=== PATIENT | female | born 1960 ===

== ENCOUNTER 2016-09-03 12:34 | Emergency (ER) | payer OTHER ==
[2016-09-03 13:05] VITALS: BP 130/86
--- NOTE | 2016-09-03 13:51 | Consultation ---
History of Present Illness - [facility] Consult date: 09/03/16 Consult reason: joint pain History of present illness: 55 y/o female with c/o left knee pain and swelling after a slip and fall injury today at work, c/o pain along medial and lateral joint lines...history of previous knee pain and swelling in past Medications and Allergies Allergies Allergy/AdvReac Type Severity Reaction Status Date / Time droperidol AdvReac Unknown Verified 09/03/16 13:05 Physical Examination - Physical exam Narrative exam: left knee- 1-2 plus effusion, tender at both joint lines, mild crepitus on passive ROM, no obvious ligament instability, questionable Maria Eugenia's xrays left knee - no fracture of dislocation seen, there's moderate degenerative changes all three compartments Assessment and Plan left knee pain after fall most likely sprain/contusion recommendations - would try knee brace hinged type along with mobic 15 mg x 15 days
[2016-09-03] MEDS ORDERED: TORADOL IM ONE (14:28)
--- NOTE | 2016-09-03 15:19 | XRay Report ---
FINAL REPORT EXAM: XR KNEE 3V LT HISTORY: pain in the left knee TECHNIQUE: AP, oblique, and lateral portable views of the left knee PRIORS: None. FINDINGS: No acute fracture or dislocation is seen. The soft tissues demonstrates a small suprapatellar joint effusion. The bony mineralization is normal. There is severe joint space narrowing of the patellofemoral joint. Mild narrowing of the medial and lateral joint compartments is also noted. Spurring off the tibial spines, medial and lateral joint spaces, and posterior patella is seen. IMPRESSION: No acute bony abnormality is of the left knee. Joint effusion. Tricompartmental osteoarthritis.
--- NOTE | 2016-09-03 19:54 | Emergency Department Report ---
Entered by ABBEY RAHMAN, acting as scribe for KEITH FITCH PA. ED Fall HPI - General Chief Complaint: Extremity Injury, Lower Stated Complaint: FELL/LT KNEE PAIN Source: patient Mode of arrival: Stretcher Limitations: No Limitations - History of Present Illness Initial Comments: 55 year old female with Hx of arthritis in left knee presents to the ED for evaluation of left knee pain and swelling secondary to fall earlier today. 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 She reports she tripped over power cord for exam light and fell, landing on the tile floor onto her left knee. She did not hit her head or incur any additional injuries. She describes her left knee pain as localized to her left knee and rates her discomfort as a 4/10 in severity. Treatments prior to arrival included ice.She denies any numbness or tingling. MD Complaint: fall -: This afternoon Fall From: standing Fall Witnessed: yes, by bystander Place Fall Occurred: work (in Labor & Delivery Department in [employer]) Loss of Consciousness: none Prolonged Down Time?: no Symptoms Prior to Fall: none Location - Extremities: Left: Knee (pain and swelling) Severity: moderate Severity scale (0 -10): 4 Context: tripped/slipped Associated Symptoms: denies: headache, neck pain, numbness, weakness, chest paint, shortness of breath, abdominal pain, unable to walk, lightheaded, confusion - Related Data Previous Rx's Medication Instructions Recorded Last Taken Type Meloxicam [Mobic] 15 mg PO QDAY PRN #15 tablet 09/03/16 Unknown Rx Allergies Allergy/AdvReac Type Severity Reaction Status Date / Time droperidol AdvReac Unknown Verified 09/03/16 13:05 ED Review of Systems Comment: All other systems reviewed and negative Constitutional: denies: chills, fever Respiratory: denies: cough, orthopnea, shortness of breath, SOB with exertion, SOB at rest, stridor Cardiovascular: denies: chest pain, palpitations, edema, syncope Gastrointestinal: denies: abdominal pain, nausea, vomiting, diarrhea Musculoskeletal: joint swelling (left knee), arthralgia (left knee). denies: back pain Neurological: denies: headache, weakness, numbness, paresthesias, abnormal gait , vertigo, other (LOC) ED Past Medical Hx - Past Medical History Previous Medical History?: Yes Hx Diabetes: Yes - Surgical History Past Surgical History?: Yes Additional Surgical History: R foot - Family History Family history: hypertension - Social History Smoking Status: Never Smoker Substance Use Type: None - Medications Home Medications: Home Medications Medication Instructions Recorded Confirmed Last Taken Type Meloxicam [Mobic] 15 mg PO QDAY PRN #15 tablet 09/03/16 Unknown Rx ED Physical Exam - General Limitations: No Limitations General appearance: alert, in no apparent distress - Head Head exam: Present: atraumatic, normocephalic - Eye Eye exam: Present: normal appearance, PERRL, EOMI Pupils: Present: normal accommodation - ENT ENT exam: Present: normal exam, normal orophraynx, mucous membranes moist, TM's normal bilaterally, normal external ear exam - Neck Neck exam: Present: normal inspection, full ROM. Absent: tenderness, meningismus, lymphadenopathy, thyromegaly - Respiratory Respiratory exam: Present: normal lung sounds bilaterally. Absent: respiratory distress, wheezes, rales, rhonchi - Cardiovascular Cardiovascular Exam: Present: regular rate, normal rhythm, normal heart sounds. Absent: systolic murmur, diastolic murmur, rubs, gallop - GI/Abdominal GI/Abdominal exam: Present: soft. Absent: distended, tenderness, guarding, rebound, rigid - Extremities Exam Extremities exam: Present: normal capillary refill (less than 2 seconds), other (2+ left popliteal pulse) - Expanded Lower Extremity Exam Left Hip exam: Present: normal inspection, full ROM, pelvic stability. Absent: tenderness, swelling, abrasion, deformity, crepidus, dislocation, erythema, external rotation, internal rotation, shortening Upper Leg exam: Present: normal inspection, full ROM. Absent: tenderness, swelling, abrasion, laceration, ecchymosis, deformity, crepidus, dislocation, erythema Knee exam: Present: full ROM (but pain with extension and flexion), tenderness ( at both joint lines), swelling (mild), crepidus (mild with passive ROM), effusion, pain w/ pronation/supination, full knee extension (but painful). Absent: abrasion, laceration, ecchymosis, deformity, dislocation, erythema, posterior draw sign, pain/laxity with valgus, pain/laxity with varus Lower Leg exam: Present: normal inspection, full ROM. Absent: tenderness, swelling, deformity, dislocation Ankle exam: Present: normal inspection, full ROM. Absent: tenderness, swelling , deformity, dislocation Foot/Toe exam: Present: normal inspection, full ROM. Absent: tenderness, swelling, abrasion, laceration, ecchymosis, deformity, crepidus, dislocation, erythema, amputation, puncture wound, foreign body, calcaneal tenderness, tenderness at base of 5th metatarsal, nail avulsion, subungual hematoma Neuro vascular tendon exam: Present: no vascular compromise. Absent: pulse deficit, abnormal cap refill, motor deficit, sensory deficit, tendon deficit, extremity cold to touch, pallor, abnormal 2-point discrimination, decreased fine /light touch, foot drop, peroneal nerve deficit, significant pain with passive ROM of distal joint Gait: Positive: observed and limited by pain - Back Exam Back exam: Present: normal inspection, full ROM. Absent: tenderness, CVA tenderness (R), CVA tenderness (L), muscle spasm, paraspinal tenderness, vertebral tenderness, rash noted - Neurological Exam Neurological exam: Present: alert, oriented X3, normal gait, reflexes normal - Psychiatric Psychiatric exam: Present: normal affect, normal mood - Skin Skin exam: Present: warm, dry, intact, normal color. Absent: rash, cyanosis ED Course Vital Signs 09/03/16 09/03/16 13:03 15:12 Temperature 97.9 F Pulse Rate 88 Respiratory 16 16 Rate Blood Pressure 130/86 O2 Sat by Pulse 97 Oximetry - Reevaluation(s) Reevaluation #1: 09/03/16 14:42 Pt received Toradol 60 mg IM and emergency room for right knee pain. - Orthopedic Splinting/Casting Injury #1 Side: right Lower Extremity Injury Location: knee Lower Extremity Immobilizer: Luan wrap ED Medical Decision Making - Radiology Data Radiology results: report reviewed Right knee is arthritic changes no fracture or dislocation per Dr. Velasquez orthopedic doctor - Medical Decision Making ED course: PT with arthralgia right knee status post fall, Osteoarthritis. She was seen by Dr. Velasquez who is the on-call orthopedic doctor and he went x- ray and reported no fracture or dislocation and the patient has arthritis. Patient with planned follow-up with Dr. Velasquez in his office. He had recommended DME knee brace and I informed him that we do not have that the knee immobilizer was patient does not want. He is located patient given Luan wrap and to be discharged home with Mobic. Patient given Toradol 60 mg IM and emergency room for knee pain. See procedure note for details on splinting ED Disposition Clinical Impression: Arthralgia of right knee Accidental fall Qualifiers: Encounter type: initial encounter Qualified Code(s): W19.XXXA - Unspecified fall, initial encounter Right knee injury Qualifiers: Encounter type: initial encounter Qualified Code(s): S89.91XA - Unspecified injury of right lower leg, initial encounter Osteoarthritis of right knee Qualifiers: Osteoarthritis type: unspecified Qualified Code(s): M17.9 - Osteoarthritis of knee, unspecified Disposition: DISCHARGED TO HOME OR SELFCARE Is pt being admited?: No Does the pt Need Aspirin: No Condition: Stable Instructions: Knee Pain (ED), Arthralgia (ED), Knee Exercises (GEN), RICE Therapy (ED) Additional Instructions: Please take Mobic as prescribed Follow-up with Dr. Velasquez as directed The following discharge instruction on Rice therapy Please make sure you take Mobic with food Prescriptions: Meloxicam [Mobic] 15 mg PO QDAY PRN #15 tablet PRN Reason: Pain Referrals: PRIMARY CARE, [Primary Care Provider] - 3-5 Days MEE VELASQUEZ MD [Staff Physician] - 2-3 Days Forms: Work/School Release Form(ED) This documentation as recorded by the LACEY ross REBEKAH,accurately reflects the service I personally performed and the decisions made by me,KEITH FITCH PA.
== END 2016-09-03 14:51 | disposition home or self-care (01) ==
LOC: ED 12:34
DX: S89.92XA Unspecified injury of left lower leg, initial encounter (principal); M17.9 Osteoarthritis of knee, unspecified; E11.9 Type 2 diabetes mellitus without complications; Z88.8 Allergy status to other drugs, medicaments and biological substances; W01.0XXA Fall on same level from slipping, tripping and stumbling without subsequent striking against object, initial encounter; Y93.89 Activity, other specified; Y99.8 Other external cause status; Y92.89 Other specified places as the place of occurrence of the external cause
CPT/HCPCS: 73562; 96372; 99283; J1885